=== PATIENT | male | born 1955 | race Caucasian/White ===

== ENCOUNTER → 2023-08-16 12:27 | Outpatient (CLI) | payer MEDICARE, SELFPAY ==
--- NOTE | ~2023-08-16 | MR_ITS ---
EXAMINATION: MR shoulder LT wo con DATE: 08/16/2023 13:33 INDICATION: Left shoulder pain and swelling with limited range of motion TECHNIQUE: Magnetic resonance imaging (MRI) of the left shoulder was performed without intravenous co ntrast. Sequences included axial PD-weighted FS FSE, coronal oblique PD-weighted FS FSE, coronal obli que T2-weighted FS FSE, sagittal PD-weighted FS FSE, and sagittal T1-weighted SE. COMPARISON: None. FINDINGS: Coracoacromial arch: The acromion undersurface is curved in morphology (type II). The coracoacromial ligament is normal. T here is widening of the acromioclavicular joint which appears to result from a prior distal left clav icle resection. Rotator cuff: Mild supraspinatus and infraspinatus tendinopathy with small full-thickness tear extending approximat jose 1.2 cm AP along the posterior aspect superior facet and anterior aspect of the middle facet footp lates of the posterior supraspinatus, anterior infraspinatus and intervening conjoined portion of the tendons. There is up to 1 cm medial retraction of the frayed and attenuated medial tear margin. The teres minor tendon is normal. There is partial thickness subscapularis tendon tear involving the supe rolateral lesser tuberosity footplate which also includes the lateral middle glenohumeral ligament co mponent of the biceps ramos sling. The long head biceps tendon is subluxed across the tear defect as well as additional 1 cm medially into associated longitudinal split tear defect between the portion of the tendon still attached to the lesser tuberosity and the intact bursal side of the tendon which remains contiguous with the intact transverse humeral ligament. No asymmetric rotator cuff muscle atr ophy. Biceps tendon, glenoid labrum and glenohumeral cartilage: There is mild tendinopathy without discrete tear of the long head biceps tendon centered at the sublu xed portion of the tendon. There is a well-defined linear tear at the base of the labrum beginning an teroinferiorly at the 5:00 position and extending posteriorly and cephalad to the 10:00 position of t he posterior labrum. Less well-defined labral degeneration at the posterosuperior labrum. There is de ep chondral ulceration along the posterior and inferior glenoid with underlying subarticular cystlike change at the posterior inferior glenoid. Additional deep chondral ulceration without degenerative s ubchondral changes at the superior and superomedial aspect of the humeral head. Fluid: There is increased fluid in the long head biceps tendon sheath which is disproportionate to the physi ologic amount fluid in the glenohumeral joint consistent with mild bicipital tenosynovitis. No loose osteochondral bodies. Small amount of fluid and synovitis in the subacromial/subdeltoid bursa consist ent with moderate bursitis. Bones: Bone alignment is normal. No fracture or pathologic marrow replacing process. IMPRESSION: 1. Mild supraspinatus and infraspinatus tendinopathy with small full-thickness tear centered at the c onjoined portion of the tendons. 2. Mild subscapularis tendinopathy with partial tear involving the superolateral lesser tuberosity fo otplate and the lateral middle glenohumeral ligament allowing medial subluxation of the long head bic eps tendon from the intertubercular groove and into the tendon tear defect. 3. Mild bicipital tenosynovitis and mild tendinopathy without tear of the long head biceps tendon. 4. Moderate glenohumeral osteoarthritis with regions of moderate and high-grade chondral malacia and tear of the anteroinferior, posterior inferior to posterior superior glenoid labrum. 5. Moderate subacromial/subdeltoid bursitis. 6. Status post distal left clavicle resection. Reviewed, dictated and finalized at location [facility]
== END ==
PROVIDERS: PCP Family Medicine; Visit Provider Family Medicine
DX: M25.412 Effusion, left shoulder (principal); M75.22 Bicipital tendinitis, left shoulder; M19.012 Primary osteoarthritis, left shoulder
CPT/HCPCS: 73221